=== PATIENT | male | born 1985 | race Two or more races ===

== ENCOUNTER 2020-01-02 22:45 | Emergency (ER) | payer MEDICAID, OTHER ==
[~2020-01-02] VITALS: Ht 185.4 cm; Wt 80.3 kg
[2020-01-02 22:54] VITALS: BP 110/84
[2020-01-02] MEDS ORDERED: clonazePAM 1 MG TABLET PO ONE (23:30)
[2020-01-02] MEDS ORDERED: clonazePAM 1 MG TABLET ONE (23:41)
== END 2020-01-03 00:20 | disposition home or self-care (01) ==
LOC: ER 22:47
DX: F41.9 Anxiety disorder, unspecified (principal); I50.9 Heart failure, unspecified; Z60.2 Problems related to living alone